=== PATIENT | male | born 1980 | race Caucasian/White ===

== ENCOUNTER 2017-12-13 19:11 | Emergency (ER) | payer BC ==
[2017-12-13] MEDS ORDERED: CETIRIZINE HCL 5 MG TABLET ONE (19:39)
[2017-12-13] MEDS ORDERED: DEXAMETHASONE 4 MG TAB ONE (19:39)
[2017-12-13] MEDS ORDERED: ALBUTEROL 2.5 MG/3 ML NEB SOL ONE (19:40)
[2017-12-13] MEDS ORDERED: PROMETHAZINE 25 MG TABLET ONE (19:40)
--- NOTE | 2017-12-13 19:59 | RAD REPORT ---
EXAM DESCRIPTION: RAD - Chest Pa And Lat (2 Views) - 12/13/2017 7:49 pm CLINICAL HISTORY: Chest pain, productive cough COMPARISON: 12/17/2013 FINDINGS: The lungs are clear. The heart is normal in size. No displaced fractures. IMPRESSION: No acute or concerning finding suspected.
--- NOTE | 2017-12-13 20:56 | EDPHYS ---
Physician Documentation [facility] Name: Rick Covarrubias Age: 37 yrs Sex: Male : 1980 Arrival Date: 12/13/2017 Time: 19:13 Bed 13 Private MD: Beny Jiménez ED Physician Vicente Alejandra HPI: 12/13 19:30 This 37 yrs old Male presents to ER via Ambulatory with complaints of snw Breathing Difficulty, Cough. 19:30 The patient has shortness of breath at rest. Onset: The symptoms/episode began/occurred snw 6 day(s) ago, and became persistent. Duration: The symptoms are continuous, and are unchanged since they started. The patient's shortness of breath has no apparent modifying factors. Associated signs and symptoms: Pertinent positives: non-productive cough. Severity of symptoms: At their worst the symptoms were moderate. The patient has not experienced similar symptoms in the past. It is unknown whether or not the patient has recently seen a physician, Sees Dr. Jiménez. Historical: - Allergies: 19:23 Codeine; la1 - PMHx: 19:23 None; la1 - Immunization history:: Adult Immunizations up to date. - Social history:: Smoking status: Patient/guardian denies using tobacco. ROS: 19:30 Constitutional: Negative for fever, chills, and weight loss, Eyes: Negative for injury, snw pain, redness, and discharge, ENT: Negative for injury, pain, and discharge, Neck: Negative for injury, pain, and swelling, Cardiovascular: Negative for chest pain, palpitations, and edema, Abdomen/GI: Negative for abdominal pain, nausea, vomiting, diarrhea, and constipation, Back: Negative for injury and pain, : Negative for injury, bleeding, discharge, and swelling, MS/Extremity: Negative for injury and deformity, Skin: Negative for injury, rash, and discoloration, Neuro: Negative for headache, weakness, numbness, tingling, and seizure. 19:30 Respiratory: Positive for cough, wheezing. Exam: 19:30 Constitutional: This is a well developed, well nourished patient who is awake, alert, snw and in no acute distress. Head/Face: Normocephalic, atraumatic. Eyes: Pupils equal round and reactive to light, extra-ocular motions intact. Lids and lashes normal. Conjunctiva and sclera are non-icteric and not injected. Cornea within normal limits. Periorbital areas with no swelling, redness, or edema. ENT: Nares patent. No nasal discharge, no septal abnormalities noted. Tympanic membranes are normal and external auditory canals are clear. Oropharynx with no redness, swelling, or masses, exudates, or evidence of obstruction, uvula midline. Mucous membranes moist. Neck: Trachea midline, no thyromegaly or masses palpated, and no cervical lymphadenopathy. Supple, full range of motion without nuchal rigidity, or vertebral point tenderness. No Meningismus. Chest/axilla: Normal chest wall appearance and motion. Nontender with no deformity. No lesions are appreciated. Cardiovascular: Regular rate and rhythm with a normal S1 and S2. No gallops, murmurs, or rubs. Normal PMI, no JVD. No pulse deficits. Abdomen/GI: Soft, non-tender, with normal bowel sounds. No distension or tympany. No guarding or rebound. No evidence of tenderness throughout. Back: No spinal tenderness. No costovertebral tenderness. Full range of motion. Skin: Warm, dry with normal turgor. Normal color with no rashes, no lesions, and no evidence of cellulitis. MS/ Extremity: Pulses equal, no cyanosis. Neurovascular intact. Full, normal range of motion. Neuro: Awake and alert, GCS 15, oriented to person, place, time, and situation. Cranial nerves II-XII grossly intact. Motor strength 5/5 in all extremities. Sensory grossly intact. Cerebellar exam normal. Normal gait. 19:30 Respiratory: the patient does not display signs of respiratory distress, Respirations: forced wheeze, cough. Vital Signs: 19:23 BP 127 / 96; Pulse 113; Resp 19; Temp 97.3(TE); Pulse Ox 98% on R/A; Weight 108.86 kg; la1 Height 5 ft. 7 in. (170.18 cm); 20:15 BP 128 / 63; Pulse 98; Resp 18; Temp 98.7; Pulse Ox 98% ; ea 21:00 BP 111 / 76; Pulse 85; Resp 18 S; Pulse Ox 97% ; ea 19:23 Body Mass Index 37.59 (108.86 kg, 170.18 cm) la1 MDM: 19:28 Patient medically screened. snw 20:59 Data reviewed: vital signs, nurses notes. Data interpreted: Pulse oximetry: on room air snw is 96 %. Interpretation: acceptable. 12/13 19:24 Order name: Chest Pa And Lat (2 Views) XRAY; Complete Time: 19:59 snw Administered Medications: 19:40 Drug: Decadron 8 mg Route: PO; ea 21:15 Follow up: Response: No adverse reaction ea 19:40 Drug: ZyrTEC - Cetirizine 10 mg Route: PO; ea 21:15 Follow up: Response: No adverse reaction; Marked relief of symptoms ea 19:40 Drug: Phenergan 25 mg Route: PO; ea 21:15 Follow up: Response: No adverse reaction; Marked relief of symptoms ea 19:50 Drug: Albuterol 2.5 mg Route: Inhalation; ea 20:19 Follow up: Response: No adverse reaction; Marked relief of symptoms ea Disposition: 12/14 04:17 Co-signature as Attending Physician, Vicente Alejandra MD. rn Disposition: 12/13/17 20:55 Discharged to Home. Impression: Acute bronchitis. - Condition is Stable. - Discharge Instructions: Acute Bronchitis. - Prescriptions for Zyrtec 10 mg Oral Tablet - take 1 tablet by ORAL route once daily As needed; 20 tablet. Tessalon Perles 100 mg Oral Capsule - take 1 capsule by ORAL route every 8 hours As needed; 15 capsule. Prednisone 20 mg Oral Tablet - take 1 tablet by ORAL route every 12 hours for 5 days; 10 tablet. Albuterol Sulfate 90 mcg/actuation - inhale 1-2 puff by INHALATION route every 4-6 hours; 1 Inhaler. - Medication Reconciliation Form, Thank You Letter, Antibiotic Education, Prescription Opioid Use form. - Follow up: Beny Jiménez MD; When: 2 - 3 days; Reason: Recheck today's complaints, Continuance of care, Re-evaluation by your physician. Follow up: Emergency Department; When: As needed; Reason: Worsening of condition. Signatures: Dispatcher [employer] EDFunmilayo Villarreal, TRIC MANAGER FITNESS-[employer] Vicente Alejandra MD MD rn Attema, Lee RN RN Sigrid Lujan RN RN ea
--- NOTE | 2017-12-13 20:56 | ER ---
Nurse's Notes [facility] Name: Rick Covarrubias Age: 37 yrs Sex: Male : 1980 Arrival Date: 12/13/2017 Time: 19:13 Bed 13 Private MD: Beny Jiménez Diagnosis: Acute bronchitis Presentation: 12/13 19:22 Presenting complaint: Patient states: productive, painful cough for 6 days. Transition la1 of care: patient was not received from another setting of care. Onset of symptoms was December 13, 2017. Initial Sepsis Screen: Does the patient meet any 2 criteria? No. Patient's initial sepsis screen is negative. Does the patient have a suspected source of infection? No. Patient's initial sepsis screen is negative. Care prior to arrival: None. 19:22 Method Of Arrival: Ambulatory la1 19:22 Acuity: HERO 3 la1 Historical: - Allergies: 19:23 Codeine; la1 - PMHx: 19:23 None; la1 - Immunization history:: Adult Immunizations up to date. - Social history:: Smoking status: Patient/guardian denies using tobacco. Screenin:18 Abuse screen: Denies threats or abuse. Nutritional screening: No deficits noted. ea Tuberculosis screening: No symptoms or risk factors identified. Fall Risk None identified. Assessment: 19:40 General: Appears uncomfortable, Behavior is calm, cooperative, appropriate for age. ea Pain: Quality of pain is described as reports pain to right and left sides when coughing. Neuro: Level of Consciousness is awake, alert, obeys commands, Oriented to person, place, time, situation. Cardiovascular: Patient's skin is warm and dry. Respiratory: Airway is patent Respiratory effort is even, unlabored, Respiratory pattern is regular, symmetrical, Breath sounds with crackles in left posterior lower lobe and right posterior lower lobe Breath sounds with wheezes in left posterior upper lobe and right posterior upper lobe. GI: No signs and/or symptoms were reported involving the gastrointestinal system. Abdomen is non-distended. : No signs and/or symptoms were reported regarding the genitourinary system. EENT: Reports nasal congestion. Derm: Skin is dry, Skin is normal, Skin temperature is warm. 21:18 Reassessment: Patient and/or family updated on plan of care and expected duration. Pain ea level reassessed. Patient is alert, oriented x 3, equal unlabored respirations, skin warm/dry/pink. Discharge instructions given to patient. verbalized the understanding of instructions. Vital Signs: 19:23 BP 127 / 96; Pulse 113; Resp 19; Temp 97.3(TE); Pulse Ox 98% on R/A; Weight 108.86 kg; la1 Height 5 ft. 7 in. (170.18 cm); 20:15 BP 128 / 63; Pulse 98; Resp 18; Temp 98.7; Pulse Ox 98% ; ea 21:00 BP 111 / 76; Pulse 85; Resp 18 S; Pulse Ox 97% ; ea 19:23 Body Mass Index 37.59 (108.86 kg, 170.18 cm) la1 ED Course: 19:13 Patient arrived in ED. am2 19:13 Beny Jiménez MD is Private Physician. am2 19:15 Funmilayo Duke FNP-C is [facility]. snw 19:15 Vicente Alejandra MD is Attending Physician. snw 19:22 Triage completed. la1 19:23 Arm band placed on left wrist. la1 19:34 Sigrid Quan, CHRISTIAN is Primary Nurse. ea 19:40 Patient has correct armband on for positive identification. Bed in low position. Call ea light in reach. Side rails up X 1. 19:49 X-ray completed. Patient tolerated procedure well. kp1 19:49 Chest Pa And Lat (2 Views) XRAY In Process Unspecified. EDMS 20:55 Beny Jiménez MD is Referral Physician. snw 21:19 No provider procedures requiring assistance completed. Patient did not have IV access ea during this emergency room visit. Administered Medications: 19:40 Drug: Decadron 8 mg Route: PO; ea 21:15 Follow up: Response: No adverse reaction ea 19:40 Drug: ZyrTEC - Cetirizine 10 mg Route: PO; ea 21:15 Follow up: Response: No adverse reaction; Marked relief of symptoms ea 19:40 Drug: Phenergan 25 mg Route: PO; ea 21:15 Follow up: Response: No adverse reaction; Marked relief of symptoms ea 19:50 Drug: Albuterol 2.5 mg Route: Inhalation; ea 20:19 Follow up: Response: No adverse reaction; Marked relief of symptoms ea Outcome: 20:55 Discharge ordered by MD. martinez 21:19 Discharged to home ambulatory. wilda 21:19 Condition: improved 21:19 Discharge instructions given to patient, Instructed on discharge instructions, follow up and referral plans. medication usage, Demonstrated understanding of instructions, follow-up care, medications, Prescriptions given X 4. 21:24 Patient left the ED. ea Signatures: Dispatcher [employer] EDMS Funmilayo Duke, [employer] MANAGER-C [employer] MANAGER-[employer] Jaron Rucker, RN RN Alcira Messer Kathy kp1 Sigrid Quan RN RN ea
== END 2017-12-13 21:24 | disposition home or self-care (01) ==
LOC: ER 19:11
DX: J20.9 Acute bronchitis, unspecified (principal); Z88.5 Allergy status to narcotic agent
CPT/HCPCS: 71046; 99284

== ENCOUNTER 2017-12-18 18:55 | Emergency (ER) | payer BC ==
[2017-12-18] MEDS ORDERED: IBUPROFEN 400 MG TAB ONE (19:13)
--- NOTE | 2017-12-18 21:15 | RAD REPORT ---
EXAM DESCRIPTION: CT - Soft Tissue Neck W/Contr - 12/18/2017 9:03 pm CLINICAL HISTORY: Left-sided face and ear pain TECHNIQUE: During dynamic enhancement using 100 milliliters nonionic IV contrast, axial 5 millimeter thick images of the neck were obtained. All CT scans are performed using dose optimization technique as appropriate and may include automated exposure control or mA/KV adjustment according to patient size. FINDINGS: Intracranial portion of the examination is unremarkable. Mastoid air cells are clear. Patc hy opacification in the middle ear is present. Prominent mucosal thickening with air-fluid level in the left maxillary sinus. No pharyngeal mucosal mass or asymmetry. Soft palate, tonsil and tongue base region show no suspiciou s findings. Epiglottis is normal. Internal carotid artery's course medially causing some mild mass ef fect on the posterolateral oropharynx. Parotid and submandibular glands on the left are normal. A few small sub centimeter lymph nodes are p resent. No measurable edema in the periauricular soft tissues. No air or foreign body. External auditory scar l is clear. IMPRESSION: Acute and chronic left maxillary sinusitis. Ethmoid air cell mucosal thickening also pre sent. Mastoid air cells are clear. There is opacification in the middle here. Cholesteatoma cannot be exclu ded on this examination. No periauricular edema or inflammatory stranding seen. No air or foreign body. Parotid gland is unrem arkable.
--- NOTE | 2017-12-18 21:25 | EDPHYS ---
Physician Documentation [facility] Name: Rick Covarrubias Age: 37 yrs Sex: Male : 1980 Arrival Date: 12/18/2017 Time: 19:00 Bed 11 Private MD: Beny Jiménez ED Physician Chao Preciado HPI: 12/18 21:20 This 37 yrs old Male presents to ER via Ambulatory with complaints of Ear gs Pain. 21:20 The patient presents with a fullness, pain, incapacitating. The complaints affect the gs left ear. Onset: The symptoms/episode began/occurred gradually, just prior to arrival. Modifying factors: The symptoms are alleviated by nothing, the symptoms are aggravated by loud noise. Associated signs and symptoms: Pertinent positives: sore throat, Pertinent negatives: fever. Severity of symptoms: At their worst the symptoms were incapacitating in the emergency department the symptoms are unchanged. The patient has not experienced similar symptoms in the past. The patient has not recently seen a physician. Historical: - Allergies: 19:04 Codeine; fc - Home Meds: 19:04 None [Active]; fc - PMHx: 19:04 None; fc - PSHx: 19:04 None; fc - Immunization history:: Last tetanus immunization: up to date. - Social history:: Smoking status: Patient/guardian denies using tobacco. ROS: 21:20 All other systems are negative. gs Exam: 21:20 Head/Face: Normocephalic, atraumatic. Eyes: Pupils equal round and reactive to light, gs extra-ocular motions intact. Lids and lashes normal. Conjunctiva and sclera are non-icteric and not injected. Cornea within normal limits. Periorbital areas with no swelling, redness, or edema. Neck: Trachea midline, no thyromegaly or masses palpated, and no cervical lymphadenopathy. Supple, full range of motion without nuchal rigidity, or vertebral point tenderness. No Meningismus. Chest/axilla: Normal chest wall appearance and motion. Nontender with no deformity. No lesions are appreciated. Cardiovascular: Regular rate and rhythm with a normal S1 and S2. No gallops, murmurs, or rubs. Normal PMI, no JVD. No pulse deficits. Respiratory: Lungs have equal breath sounds bilaterally, clear to auscultation and percussion. No rales, rhonchi or wheezes noted. No increased work of breathing, no retractions or nasal flaring. Abdomen/GI: Soft, non-tender, with normal bowel sounds. No distension or tympany. No guarding or rebound. No evidence of tenderness throughout. Back: No spinal tenderness. No costovertebral tenderness. Full range of motion. Skin: Warm, dry with normal turgor. Normal color with no rashes, no lesions, and no evidence of cellulitis. MS/ Extremity: Pulses equal, no cyanosis. Neurovascular intact. Full, normal range of motion. Neuro: Awake and alert, GCS 15, oriented to person, place, time, and situation. Cranial nerves II-XII grossly intact. Motor strength 5/5 in all extremities. Sensory grossly intact. Cerebellar exam normal. Normal gait. 21:20 Constitutional: The patient appears alert, awake, in obvious distress, severely distressed. 21:20 ENT: External ear(s): pain with movement, is not appreciated, Ear canal(s): are normal, TM's: dullness, on the left, erythema, that is moderate, fluid levels, on the left, loss of bony landmarks, that is pronounced, on the left, rupture, is not appreciated, Examination of the other ear shows no obvious abnormality, Posterior pharynx: Tonsils: no enlargement, no exudate, Uvula: normal. 21:20 Neck: Lymph nodes: lymphadenopathy is appreciated, anterior cervical nodes. 21:20 ECG was reviewed by the Attending Physician. Vital Signs: 19:04 BP 162 / 88; Pulse 92; Resp 20; Temp 98.0(TE); Pulse Ox 100% on R/A; Weight 108.86 kg fc (R); Height 5 ft. 7 in. (170.18 cm) (R); Pain 9/10; 21:41 BP 138 / 72; Pulse 89; Resp 18; Pulse Ox 99% on R/A; aa1 19:04 Body Mass Index 37.59 (108.86 kg, 170.18 cm) MDM: 19:20 Patient medically screened. snw 21:20 Differential diagnosis: otitis media, acute otalgia, neck mass abscess. Data reviewed: vital signs, nurses notes. Response to treatment: the patient's symptoms have mildly improved after treatment. ED course: ct pt pain out of proportion to physical findings. 21:20 Counseling: I had a detailed discussion with the patient and/or guardian regarding: the gs presence of at least one elevated blood pressure reading (>120/80) during this emergency department visit. Special discussion: I have referred the patient to see his PCP for further evaluation of high blood pressure. 12/18 19:58 Order name: Creatinine for Radiology; Complete Time: 20:48 gs 12/18 19:38 Order name: CT Soft Tissue Neck W/contr; Complete Time: 21:19 12/18 19:48 Order name: EKG; Complete Time: 19:49 gs 12/18 19:48 Order name: EKG - Nurse/Tech; Complete Time: 20:22 gs EC:20 Rate is 83 beats/min. Rhythm is regular. ND interval is normal. QRS interval is normal. gs T waves are Normal. No ST changes noted. Clinical impression: Abnormal EKG without significant change. Interpreted by me. Administered Medications: 19:15 Drug: Ibuprofen 800 mg Route: PO; Disposition: 12/18/17 21:24 Discharged to Home. Impression: Otalgia, left ear, Otalgia and effusion of ear, Acute suppurative otitis media. - Condition is Stable. - Discharge Instructions: Ear Drops, Adult, Earache, Managing Your High Blood Pressure. - Prescriptions for Ceftin 500 mg Oral Tablet - take 1 tablet by ORAL route every 12 hours for 10 days; 20 tablet. Ciprodex 0.3- 0.1 % Otic Drops, Suspension - instill 4 drop by OTIC route every 12 hours for 7 days , for ears ONLY; 1 Container. - Medication Reconciliation Form, Thank You Letter, Antibiotic Education, Prescription Opioid Use form. - Follow up: Sarah Wyatt MD; When: 2 - 3 days; Reason: Re-evaluation by your physician. Signatures: Dispatcher [employer] EDMS Lidia Venegas RN RN aa1 Funmilayo Duke FNP-C FNP-Mallorie Grijalva RN RN Chao Preciado MD MD Corrections: (The following items were deleted from the chart) 21:42 21:24 12/18/2017 21:24 Discharged to Home. Impression: Otalgia, left ear; Otalgia and aa1 effusion of ear; Acute suppurative otitis media. Condition is Stable. Forms are Medication Reconciliation Form, Thank You Letter, Antibiotic Education, Prescription Opioid Use. Follow up: Sarah Wyatt; When: 2 - 3 days; Reason: Re-evaluation by your physician. gs
--- NOTE | 2017-12-18 21:25 | ER ---
Nurse's Notes [facility] Name: Rick Covarrubias Age: 37 yrs Sex: Male : 1980 Arrival Date: 12/18/2017 Time: 19:00 Bed 11 Private MD: Beny Jiménez Diagnosis: Otalgia, left ear;Otalgia and effusion of ear;Acute suppurative otitis media Presentation: 12/18 19:01 Presenting complaint: Patient states: that he is having a lot of pressure in is left fc ear that started at about 1730 today. States that the pain is going down to his jaw. Denies any drainage or injury to ear. Transition of care: patient was not received from another setting of care. Onset of symptoms was December 18, 2017 at 17:30. Initial Sepsis Screen: Does the patient meet any 2 criteria? HR > 90 bpm. Yes Does the patient have a suspected source of infection? No. Patient's initial sepsis screen is negative. Care prior to arrival: None. 19:01 Method Of Arrival: Ambulatory 19:01 Acuity: HERO 3 Triage Assessment: 19:10 General: Appears uncomfortable, Behavior is cooperative, appropriate for age, anxious. fc Pain: Complains of pain in left ear Pain currently is 9 out of 10 on a pain scale. Quality of pain is described as aching, throbbing, Pain began 2 hours ago. Is continuous. EENT: Tympanic membrane reddened on left ear Ear canal clear on left ear Reports pain in left ear. Neuro: Level of Consciousness is awake, alert, obeys commands, Oriented to person, place, time, situation. Cardiovascular: No deficits noted. Respiratory: No deficits noted. GI: No deficits noted. : No deficits noted. Derm: Skin is pink, warm \T\ dry. Musculoskeletal: Circulation, motion, and sensation intact. Capillary refill < 3 seconds, Range of motion: intact in all extremities. Historical: - Allergies: 19:04 Codeine; fc - Home Meds: 19:04 None [Active]; fc - PMHx: 19:04 None; fc - PSHx: 19:04 None; fc - Immunization history:: Last tetanus immunization: up to date. - Social history:: Smoking status: Patient/guardian denies using tobacco. Screenin:10 Abuse screen: Denies threats or abuse. Nutritional screening: No deficits noted. fc Tuberculosis screening: No symptoms or risk factors identified. Fall Risk None identified. Assessment: 19:09 Reassessment: Dr Preciado in triage to see pt. 19:11 Reassessment: No changes from previously documented assessment. Patient and/or family fc updated on plan of care and expected duration. Pain level reassessed. Patient is alert, oriented x 3, equal unlabored respirations, skin warm/dry/pink. see triage assessment. 21:41 Reassessment: Patient appears in no apparent distress at this time. Patient is alert, aa1 oriented x 3, equal unlabored respirations, skin warm/dry/pink. Discussed d/c \T\ f/u instructions with pt; denies questions or concerns at this time Patient states feeling better. Vital Signs: 19:04 BP 162 / 88; Pulse 92; Resp 20; Temp 98.0(TE); Pulse Ox 100% on R/A; Weight 108.86 kg fc (R); Height 5 ft. 7 in. (170.18 cm) (R); Pain 9/10; 21:41 BP 138 / 72; Pulse 89; Resp 18; Pulse Ox 99% on R/A; aa1 19:04 Body Mass Index 37.59 (108.86 kg, 170.18 cm) fc ED Course: 19:00 Patient arrived in ED. mr 19:01 Beny Jiménez MD is Private Physician. mr 19:03 Triage completed. fc 19:04 Arm band placed on Patient placed in an exam room, on a stretcher. fc 19:10 Patient has correct armband on for positive identification. Call light in reach. fc 19:18 Funmilayo Duke FNP-C is PHCP. snw 19:18 Chao Preciado MD is Attending Physician. snw 20:00 Radiology exam delayed due to lab results not completed at this time. IV insertion nj attempt and/or patient not having appropriate IV at this time. 20:21 EKG done, by ED staff, reviewed by Chao Preciado MD. Initial lab(s) drawn, by nj, sent dh3 to lab. Inserted saline lock: 20 gauge in left forearm, using aseptic technique. Blood collected. 20:[address] via wheelchair. nj 21:03 CT completed. Patient tolerated procedure well. Patient moved back from [place]. corby 21:04 CT Soft Tissue Neck W/contr In Process Unspecified. EDMS 21:23 Sarah Wyatt MD is Referral Physician. 21:41 No provider procedures requiring assistance completed. IV discontinued, intact, aa1 bleeding controlled, No redness/swelling at site. Pressure dressing applied. Administered Medications: 19:15 Drug: Ibuprofen 800 mg Route: PO; fc Outcome: 21:24 Discharge ordered by MD. gs 21:41 Discharged to home ambulatory. aa1 21:41 Condition: good 21:41 Discharge instructions given to patient, Instructed on discharge instructions, follow up and referral plans. medication usage, Demonstrated understanding of instructions, follow-up care, medications, Prescriptions given X 2. 21:42 Patient left the ED. aa1 Signatures: Dispatcher [employer] EDMS Lidia Venegas RN RN aa1 Funmilayo Duke, ELECTRONIC GAME DEVELOPER-C ELECTRONIC GAME DEVELOPER-Cs[employer] Lary Wallace mr Mallorie Lazo RN RN Pablo Munson Deanna [facility] Chao Preciado MD MD Corrections: (The following items were deleted from the chart) 19:09 19:01 Presenting complaint: Patient states: that he is having a lot of pressure in is fc right ear that started at about 1730 today. States that the pain is going down to his jaw. Denies any drainage or injury to ear. fc
--- NOTE | 2017-12-19 06:43 | EKG ---
Test Date: 2017-12-18 Test Time: 20:09:10 Caul Dresser: ANASTACIA MEASUREMENT RESULTS: Intervals: Rate: 83 [place]: 122 QRSD: 76 QT: 344 QTc: 404 Woodruff: P: 36 AZ: 122 QRS: 3 T: 58 INTERPRETIVE STATEMENTS: Normal sinus rhythm Minimal voltage criteria for LVH, may be normal variant Borderline ECG No previous ECG available for comparison Electronically Signed On 12-19-17 06:43:02 CDT by Sha Kirk
== END 2017-12-18 21:42 | disposition home or self-care (01) ==
LOC: ER 18:55
DX: H66.002 Acute suppurative otitis media without spontaneous rupture of ear drum, left ear (principal)
CPT/HCPCS: 36415; 70491; 93005; 99284; Q9967

== ENCOUNTER 2019-01-01 10:17 | Emergency (ER) | payer BC, OTHER ==
--- NOTE | 2019-01-01 12:38 | RAD REPORT ---
EXAM DESCRIPTION: RAD - Ankle Right 3 View - 01/01/2019 12:33 pm CLINICAL HISTORY: right ankle pain Pain and swelling COMPARISON: No comparisons FINDINGS: No fracture or dislocation seen. Large calcaneal spurs are evident. IMPRESSION: Large calcaneal spurs.
--- NOTE | 2019-01-01 12:50 | EDPHYS ---
Physician Documentation [facility] Name: Rick Covarrubias Age: 38 yrs Sex: Male : 1980 Arrival Date: 01/01/2019 Time: 10:21 Bed 11 Private MD: Beny Jiménez ED Physician Chao Preciado HPI: 01/01 11:56 This 38 yrs old Male presents to ER via Ambulatory with complaints of Foot jmm Pain. 11:56 The patient presents with pain, that is acute. Onset: The symptoms/episode jmm began/occurred gradually, 4 day(s) ago. Modifying factors: The symptoms are alleviated by elevating leg, the symptoms are aggravated by weight bearing. Associated signs and symptoms: Pertinent negatives calf tenderness, fever, swelling. This is a 38 year old male with no chronic medical conditions that presents to the ED with complaints of right ankle pain beginning 4 days ago. Patient states he began working out 1 week ago. Pain is worsened with weight bearing. Denies fever. Denies known injury. . Historical: - Allergies: 10:35 Codeine; ss - Home Meds: 10:39 None [Active]; ss - PMHx: 10:39 None; ss - PSHx: 10:35 None; ss - Immunization history:: Adult Immunizations up to date. - Social history:: Smoking status: Patient/guardian denies using tobacco. - Ebola Screening: : Patient denies exposure to infectious person Patient denies travel to an Ebola-affected area in the 21 days before illness onset. ROS: 11:56 Constitutional: Negative for fever, chills, and weight loss, Cardiovascular: Negative jmm for chest pain, palpitations, and edema, Respiratory: Negative for shortness of breath, cough, wheezing, and pleuritic chest pain. 11:56 MS/extremity: Positive for injury or acute deformity, pain. 11:56 All other systems are negative. Exam: 11:56 Constitutional: This is a well developed, well nourished patient who is awake, alert, jmm and in no acute distress. Head/Face: atraumatic. Eyes: EOMI, no conjunctival erythema appreciated ENT: Moist Mucus Membranes Neck: Trachea midline, Supple Chest/axilla: Normal chest wall appearance and motion. Cardiovascular: Regular rate and rhythm. No edema appreciated Respiratory: Normal respirations, no respiratory distress appreciated Abdomen/GI: Non distended, soft Back: Normal ROM Skin: General appearance color normal 11:56 Musculoskeletal/extremity: right lateral ankle pain on palpation, no swelling appreciated, no deformity appreciated, full dorsalis pedis pulse appreciated, compartments are soft, NVI.. 11:56 Skin: Appearance: Color: normal in color. 11:56 Neuro: Orientation: is normal, Mentation: is normal, Memory: is normal. 11:56 Psych: Behavior/mood is pleasant, cooperative. Vital Signs: 10:39 BP 133 / 87; Pulse 68; Resp 16; Temp 97.3(TE); Pulse Ox 98% on R/A; Weight 108.86 kg; ss Height 5 ft. 7 in. (170.18 cm); Pain 6/10; 10:39 Body Mass Index 37.59 (108.86 kg, 170.18 cm) ss MDM: 11:53 Patient medically screened. [facility] 12:47 Data reviewed: vital signs, nurses notes. Counseling: I had a detailed discussion with jayne the patient and/or guardian regarding: the historical points, exam findings, and any diagnostic results supporting the discharge/admit diagnosis, radiology results, the need for outpatient follow up, to return to the emergency department if symptoms worsen or persist or if there are any questions or concerns that arise at home. ED course: Symptoms appear most likely due to overuse. Patient is advised to follow up with ortho for further evaluation and otherwise advised to return to the ED if symptoms worsen. Patient understood and agrees with the plan of care. . 01/01 11:53 Order name: Ankle Right 3 View XRAY; Complete Time: 12:42 [facility] 01/01 12:48 Order name: Esteban wrap-joint; Complete Time: 13:38 [facility] Administered Medications: 13:25 Drug: Motrin 800 mg Route: PO; sg Disposition: 01/01/19 12:49 Discharged to Home. Impression: Pain in ankle and joints of foot. - Condition is Stable. - Discharge Instructions: Ankle Pain, Foot Pain. - Prescriptions for Ibuprofen 800 mg Oral Tablet - take 1 tablet by ORAL route every 8 hours As needed take with food; 30 tablet. - Work release form, Medication Reconciliation Form, Thank You Letter, Antibiotic Education, Prescription Opioid Use form. - Follow up: Jong Bustillos MD; When: 2 - 3 days; Reason: Recheck today's complaints, Continuance of care, Re-evaluation by your physician. Addendum: 01/02/2019 16:16 Co-signature as Attending Physician, Chao Preciado MD. g s Signatures: Dispatcher [employer] EDDon Rodriguez, RN RN sg Rommel Bolton PA PA jmm Smirch, Shelby, RN RN ss Starr, Gregory, MD MD Corrections: (The following items were deleted from the chart) 01/01 13:38 12:49 01/01/2019 12:49 Discharged to Home. Impression: Pain in ankle and joints of sg foot. Condition is Stable. Forms are Medication Reconciliation Form, Thank You Letter, Antibiotic Education, Prescription Opioid Use. Follow up: Dr. Jong Bustillos; When: 2 - 3 days; Reason: Recheck today's complaints, Continuance of care, Re-evaluation by your physician. jayne
--- NOTE | 2019-01-01 12:50 | ER ---
Nurse's Notes [facility] Name: Rick Covarrubias Age: 38 yrs Sex: Male : 1980 Arrival Date: 01/01/2019 Time: 10:21 Bed 11 Private MD: Beny Jiménez Diagnosis: Pain in ankle and joints of foot Presentation: 01/01 10:35 Presenting complaint: Patient states: Pain to R Achilles area that began 2 days ago. ss Denies injury. No discoloration and/or swelling noted. Transition of care: patient was not received from another setting of care. Onset of symptoms was December 30, 2018. Risk Assessment: Do you want to hurt yourself or someone else? Patient reports no desire to harm self or others. Initial Sepsis Screen: Does the patient meet any 2 criteria? No. Patient's initial sepsis screen is negative. Does the patient have a suspected source of infection? No. Patient's initial sepsis screen is negative. Care prior to arrival: None. 10:35 Method Of Arrival: Ambulatory ss 10:35 Acuity: HERO 4 ss Historical: - Allergies: 10:35 Codeine; ss - Home Meds: 10:39 None [Active]; ss - PMHx: 10:39 None; ss - PSHx: 10:35 None; ss - Immunization history:: Adult Immunizations up to date. - Social history:: Smoking status: Patient/guardian denies using tobacco. - Ebola Screening: : Patient denies exposure to infectious person Patient denies travel to an Ebola-affected area in the 21 days before illness onset. Screenin:35 Abuse screen: Denies threats or abuse. Denies injuries from another. Nutritional ss screening: No deficits noted. Tuberculosis screening: Never had TB. Fall Risk None identified. Assessment: 10:35 General: Appears in no apparent distress. comfortable, Behavior is calm, cooperative, ss Denies fever, feeling ill, fatigue, chills. Pain: Complains of pain in right Achilles Pain currently is 6 out of 10 on a pain scale. Quality of pain is described as aching, tender, Is continuous. Neuro: Level of Consciousness is awake, alert, obeys commands. Cardiovascular: Pulses are palpable in right posterior tibial artery and left posterior tibial artery. Respiratory: Airway is patent Respiratory effort is even, unlabored, Respiratory pattern is regular, symmetrical. EENT: Nares are clear Oral mucosa is moist. Derm: Skin is intact, is healthy with good turgor, Skin is moist, Skin is pink, warm \T\ dry. normal. Musculoskeletal: Circulation, motion, and sensation intact. Range of motion: intact in all extremities, Swelling absent. Vital Signs: 10:39 BP 133 / 87; Pulse 68; Resp 16; Temp 97.3(TE); Pulse Ox 98% on R/A; Weight 108.86 kg; ss Height 5 ft. 7 in. (170.18 cm); Pain 6/10; 10:39 Body Mass Index 37.59 (108.86 kg, 170.18 cm) ED Course: 10:21 Patient arrived in ED. rg4 10:22 Beny Jiménez MD is Private Physician. rg4 10:35 Patient has correct armband on for positive identification. Bed in low position. Call ss light in reach. 10:35 No provider procedures requiring assistance completed. Patient did not have IV access ss during this emergency room visit. 10:39 Triage completed. ss 10:39 Arm band placed on right wrist. ss 11:31 Rommel Bolton PA is PHCP. [facility] 11:31 Chao Preciado MD is Attending Physician. [facility] 12:34 Ankle Right 3 View XRAY In Process Unspecified. EDMS 12:48 Jong Bustillos MD is Referral Physician. [facility] 13:32 Don Lou, RN is Primary Nurse. sg Administered Medications: 13:25 Drug: Motrin 800 mg Route: PO; sg Outcome: 12:49 Discharge ordered by MD. [facility] 13:30 Discharged to home ambulatory, with family. sg 13:30 Condition: good 13:30 Discharge instructions given to patient, Instructed on discharge instructions, follow up and referral plans. safety practices, Demonstrated understanding of instructions, follow-up care. 13:38 Patient left the ED. sg Signatures: Dispatcher [employer] EDMS Don Lou, RN RN Rommel Sr PA PA jmm Smirch, Shelby, RN RN ss Garcia, Rubi rg4
[2019-01-01] MEDS ORDERED: IBUPROFEN 400 MG TAB ONE (13:37)
== END 2019-01-01 13:38 | disposition home or self-care (01) ==
LOC: ER 10:17
DX: M25.571 Pain in right ankle and joints of right foot (principal); Z88.5 Allergy status to narcotic agent
CPT/HCPCS: 99283

== ENCOUNTER 2020-04-17 17:48 | Emergency (ER) | payer OTHER ==
[2020-04-17] MEDS ORDERED: KETOROLAC 30 MG/ML INJ ONE (18:40)
[2020-04-17] MEDS ORDERED: CYCLOBENZAPRINE 10 MG TAB ONE (18:40)
--- NOTE | 2020-04-17 19:04 | EDPHYS ---
Physician Documentation [facility] Name: Rick Covarrubias Age: 39 yrs Sex: Male : 1980 Arrival Date: 04/17/2020 Time: 17:51 Bed 20 Private MD: Beny Jiménez ED Physician Vicente Alejandra HPI: 04/17 18:35 This 39 yrs old Male presents to ER via Wheelchair with complaints of Right pm1 foot pain. 18:35 The patient presents with pain, that is acute. The complaints affect the arch of right pm1 foot. Context: The problem was sustained at home, resulted from an unknown cause, the patient can fully bear weight, the patient is able to ambulate, with mild difficulty, Problem is a result from a previous injury: No. Onset: The symptoms/episode began/occurred yesterday. Modifying factors: the symptoms are aggravated by weight bearing. Associated signs and symptoms: Pertinent negatives calf tenderness, fever, swelling, tingling. Treatment prior to arrival includes: no previous treatment. Severity of symptoms: in the emergency department the symptoms are unchanged. The patient has experienced a previous episode, many years ago. Historical: - Allergies: 18:14 Codeine; ca1 - PMHx: 18:14 None; ca1 - PSHx: 18:14 None; ca1 - Immunization history:: Adult Immunizations up to date. - Social history:: Smoking status: Patient denies any tobacco usage or history of. ROS: 18:35 Constitutional: Negative for fever, chills, and weight loss, Cardiovascular: Negative pm1 for chest pain, palpitations, and edema, Respiratory: Negative for shortness of breath, cough, wheezing, and pleuritic chest pain, Abdomen/GI: Negative for abdominal pain, nausea, vomiting, diarrhea, and constipation. 18:35 Skin: Negative for injury, rash, and discoloration, Neuro: Negative for headache, weakness, numbness, tingling, and seizure. 18:35 MS/extremity: Positive for pain, swelling, tenderness, of the arch of right foot. Exam: 18:35 Constitutional: This is a well developed, well nourished patient who is awake, alert, pm1 and in no acute distress. Head/Face: Normocephalic, atraumatic. 18:35 Skin: Warm, dry with normal turgor. Normal color with no rashes, no lesions, and no evidence of cellulitis. 18:35 Cardiovascular: Exam negative for acute changes, Rate: normal, Rhythm: regular, Pulses: no pulse deficits are appreciated, Edema: is not appreciated. 18:35 Respiratory: Exam negative for acute changes, respiratory distress, shortness of breath. 18:35 Musculoskeletal/extremity: Exam is negative for acute changes, Extremities: grossly normal except: noted in the arch of right foot: tenderness, There is no evidence of erythema, swelling, ROM: no acute changes, Circulation is intact in all extremities. 18:35 Neuro: Exam negative for acute changes, Orientation: is normal, Mentation: is normal, Motor: is normal, moves all fours. Vital Signs: 18:12 BP 134 / 85; Pulse 84; Resp 18; Temp 98.7(O); Pulse Ox 98% on R/A; Weight 122.47 kg; ca1 Height 5 ft. 7 in. (170.18 cm); Pain 0/10; 18:12 Body Mass Index 42.29 (122.47 kg, 170.18 cm) ca1 MDM: 18:12 Patient medically screened. pm1 19:03 Data reviewed: vital signs. Data interpreted: Pulse oximetry: on room air is 98 %. pm1 Interpretation: normal. Counseling: I had a detailed discussion with the patient and/or guardian regarding: the historical points, exam findings, and any diagnostic results supporting the discharge/admit diagnosis, radiology results, the need for outpatient follow up, to return to the emergency department if symptoms worsen or persist or if there are any questions or concerns that arise at home. 19:10 ED course: Patient offered crutches. He prefers to buy his own due to potential pm1 difference in cost of crutches from the hospital. 04/17 18:23 Order name: Foot Right 3 View XRAY; Complete Time: 20:29 pm1 Administered Medications: 18:37 Drug: TORadol 60 mg Route: IM; Site: right deltoid; tw2 19:09 Follow up: Response: No adverse reaction tw2 18:37 Drug: Flexeril 10 mg Route: PO; tw2 19:09 Follow up: Response: No adverse reaction tw2 Disposition: 04/18 07:13 Co-signature as Attending Physician, Vicente Alejandra MD. rn Disposition: 04/17/20 19:03 Discharged to Home. Impression: Pain in right foot. - Condition is Stable. - Discharge Instructions: Plantar Fasciitis, Foot Pain. - Prescriptions for Cyclobenzaprine 10 mg Oral Tablet - take 1 tablet by ORAL route every 8 hours As needed; 30 tablet. Diclofenac Sodium 75 mg Oral Tablet, Delayed Release (E.C.) - take 1 tablet by ORAL route 2 times per day As needed; 30 tablet. - Medication Reconciliation Form, Thank You Letter, Antibiotic Education, Prescription Opioid Use, Work release form form. - Follow up: Emergency Department; When: As needed; Reason: Worsening of condition. Follow up: Private Physician; When: 2 - 3 days; Reason: Recheck today's complaints, Continuance of care, Re-evaluation by your physician. - Problem is new. - Symptoms have improved. Signatures: Dispatcher [employer] EDMS Vicente Alejandra MD MD rn Marinas, Patrick, SIGNAL PERSON SIGNAL PERSON pm1 Pallavi Hayes RN RN tw2 Germaine Jon RN RN ca1 Dorota Araiza RN RN mt2 Corrections: (The following items were deleted from the chart) 04/17 19:28 19:03 04/17/2020 19:03 Discharged to Home. Impression: Pain in right foot. Condition is mt2 Stable. Forms are Work release form, Medication Reconciliation Form, Thank You Letter, Antibiotic Education, Prescription Opioid Use. Follow up: Emergency Department; When: As needed; Reason: Worsening of condition. Follow up: Private Physician; When: 2 - 3 days; Reason: Recheck today's complaints, Continuance of care, Re-evaluation by your physician. Problem is new. Symptoms have improved. pm1
--- NOTE | 2020-04-17 19:04 | ER ---
Nurse's Notes [facility] Name: Rick Covarrubias Age: 39 yrs Sex: Male : 1980 Arrival Date: 04/17/2020 Time: 17:51 Bed 20 Private MD: Beyn Jiménez Diagnosis: Pain in right foot Presentation: 04/17 18:12 Chief complaint: Patient states: right foot swelling/pain that started yesterday, ca1 denies trauma, more painful when walking. Coronavirus screen: Client denies travel out of the [place] in the last 14 days. Ebola Screen: Patient negative for fever greater than or equal to 101.5 degrees Fahrenheit, and additional compatible Ebola Virus Disease symptoms Patient denies exposure to infectious person. Patient denies travel to an Ebola-affected area in the 21 days before illness onset. No symptoms or risks identified at this time. Initial Sepsis Screen: Does the patient meet any 2 criteria? No. Patient's initial sepsis screen is negative. Does the patient have a suspected source of infection? No. Patient's initial sepsis screen is negative. Risk Assessment: Do you want to hurt yourself or someone else? Patient reports no desire to harm self or others. Onset of symptoms was April 16, 2020. 18:12 Method Of Arrival: Wheelchair ca1 18:12 Acuity: HERO 4 ca1 Historical: - Allergies: 18:14 Codeine; ca1 - PMHx: 18:14 None; ca1 - PSHx: 18:14 None; ca1 - Immunization history:: Adult Immunizations up to date. - Social history:: Smoking status: Patient denies any tobacco usage or history of. Screenin:09 Abuse screen: Denies threats or abuse. Nutritional screening: No deficits noted. tw2 Tuberculosis screening: No symptoms or risk factors identified. Fall Risk None identified. Assessment: 18:20 Reassessment: provider at bedside at this time. tw2 18:37 General: Appears in no apparent distress. obese, well groomed, Behavior is calm, tw2 cooperative, appropriate for age. Pain: Complains of pain in arch of right foot. Neuro: Level of Consciousness is awake, alert, obeys commands, Oriented to person, place, time, situation. Cardiovascular: Capillary refill < 3 seconds Patient's skin is warm and dry. Respiratory: Airway is patent Respiratory effort is even, unlabored, Respiratory pattern is regular, symmetrical. GI: No signs and/or symptoms were reported involving the gastrointestinal system. : No signs and/or symptoms were reported regarding the genitourinary system. EENT: No signs and/or symptoms were reported regarding the EENT system. Derm: No signs and/or symptoms reported regarding the dermatologic system. Musculoskeletal: Circulation, motion, and sensation intact. Range of motion: intact in all extremities. Vital Signs: 18:12 BP 134 / 85; Pulse 84; Resp 18; Temp 98.7(O); Pulse Ox 98% on R/A; Weight 122.47 kg; ca1 Height 5 ft. 7 in. (170.18 cm); Pain 0/10; 18:12 Body Mass Index 42.29 (122.47 kg, 170.18 cm) ca1 ED Course: 17:51 Patient arrived in ED. ag5 17:51 Beny Jiménez MD is Private Physician. ag5 18:09 Pallavi Hayes RN is Primary Nurse. tw2 18:09 Bed in low position. Call light in reach. tw2 18:09 Arm band placed on. tw2 18:12 Uli Kapoor NP is PHCP. pm1 18:12 Vicente Alejandra MD is Attending Physician. pm1 18:14 Triage completed. ca1 18:51 Foot Right 3 View XRAY In Process Unspecified. EDMS 19:00 Report given to CHRISTIAN Raya. tw2 19:27 No provider procedures requiring assistance completed. Patient did not have IV access mt2 during this emergency room visit. Administered Medications: 18:37 Drug: TORadol 60 mg Route: IM; Site: right deltoid; tw2 19:09 Follow up: Response: No adverse reaction tw2 18:37 Drug: Flexeril 10 mg Route: PO; tw2 19:09 Follow up: Response: No adverse reaction tw2 Outcome: 19:03 Discharge ordered by . pm1 19:27 Discharged to home via wheelchair. mt2 19:27 Condition: good 19:27 Discharge instructions given to patient, Instructed on discharge instructions, follow up and referral plans. medication usage, Demonstrated understanding of instructions, follow-up care, medications, Prescriptions given X 2. 19:28 Patient left the ED. mt2 Signatures: Dispatcher [employer] EDMS Antwon Uli, WEB EDITOR WEB EDITOR pm1 Pallavi Hayes, RN RN tw2 Germaine Jon, RN RN ca1 Abena Borrero ag5 Dorota Araiza, RN RN mt2
--- NOTE | 2020-04-17 19:24 | RAD REPORT ---
EXAM DESCRIPTION: RAD - Foot Right 3 View - 04/17/2020 6:51 pm CLINICAL HISTORY: PAIN COMPARISON: No comparisonsNone. FINDINGS: No fracture, dislocation or periosteal reaction. No acute or destructive bone process. Lar ge plantar and Achilles spurs are present. No air or foreign body in the soft tissues. Soft tissue edema seen over the distal foot. IMPRESSION: Soft tissue swelling without air or foreign body. No acute bone or joint finding. Large plantar and Achilles spurs.
[2020-04-20 11:55] VITALS: BP 134/85; TEMP 98.7; O2SAT 98
== END 2020-04-17 19:28 | disposition home or self-care (01) ==
LOC: ER 17:48
DX: M79.671 Pain in right foot (principal); Z88.5 Allergy status to narcotic agent
CPT/HCPCS: 96372; 99283

== ENCOUNTER 2024-08-09 21:03 | Emergency (ER) | payer OTHER ==
--- NOTE | 2024-08-09 22:06 | RAD REPORT ---
EXAMINATION: UPPER EXTREMITY VENOUS UNILATE CLINICAL INDICATION: Right arm pain TECHNIQUE: Complete bilateral duplex sonography of the right upper extremity veins was performed. The examination included compression for vein patency, color Doppler imaging and flow augmentation in response to distal compression of the internal jugular,, subclavian, axillary, brachial, radial, ulna r, cephalic and basilic veins. .Grayscale, color and spectral analysis performed on all vessels COMPARISON: No prior exam. FINDINGS: The right internal jugular, subclavian, axillary, brachial, basilic, cephalic, radial and ulnar veins are generally compressible and demonstrate augmentation. Color Doppler demonstrates good flow. IMPRESSION: No evidence of venous thrombus right arm
--- NOTE | 2024-08-09 22:14 | EDPHYS ---
Physician Documentation [facility] Name: Rick Covarrubias Age: 43 yrs Sex: Male : 1980 Arrival Date: 08/09/2024 Time: 21:03 Bed 6 Private MD: ED Physician Vicente Alejandra HPI: 08/09 22:12 This 43 yrs old Male presents to ER via Ambulatory with complaints of RT ARM PAIN, kb FINGER NUMBNESS. 22:12 Pt is a 43 year old male who presents for pain to right upper arm that radiates down to kb fingers that started a week ago. States he has had some numbness to right thumb for the past 2 days so he wanted to get it checked out. Denies any injury or trauma. . Historical: - Allergies: 21:14 Codeine; hb - Home Meds: 21:14 Ritalin Oral [Active]; hb - PMHx: 21:14 ADHD; hb - PSHx: 21:14 None; hb - Immunization history:: Adult Immunizations up to date. - Infectious Disease History:: Denies. - Social history:: Smoking status: Patient denies any tobacco usage or history of. ROS: 22:08 Constitutional: As per HPI kb Exam: 22:08 Constitutional: This is a well developed, well nourished patient who is awake, alert, kb and in no acute distress. Head/Face: Normocephalic, atraumatic. ENT: Moist Mucous membranes Cardiovascular: Regular rate Respiratory: Respirations even and unlabored. No increased work of breathing. Talking in full sentences Skin: Warm, dry with normal turgor. Normal color. Neuro: Awake and alert, GCS 15, oriented to person, place, time, and situation. 22:08 Musculoskeletal/extremity: Extremities: grossly normal except: noted in the right tricep: pain, tenderness, ROM: intact in all extremities, Circulation is intact in all extremities. Sensation intact. Vital Signs: 21:12 BP 143 / 100; Pulse 74; Resp 16; Temp 98.3(O); Pulse Ox 98% on R/A; Weight 115.67 kg; hb Height 5 ft. 7 in. ; Pain 8/10; 22:29 BP 138 / 93; Pulse 76; Resp 18; Pulse Ox 100% on R/A; al5 21:12 Body Mass Index 39.94 (115.67 kg, 170.18 cm) hb 21:12 Pain Scale: Adult hb MDM: 21:06 Medical Screening Exam initiated kb 22:09 Differential diagnosis: radiculopathy, DVT, arterial obstruction. Data reviewed: vital kb signs, nurses notes. Counseling: I had a detailed discussion with the patient and/or guardian regarding the historical points, exam findings, and any diagnostic results supporting the discharge/admit diagnosis, radiology results, the need for outpatient follow up, to return to the emergency department if symptoms worsen or persist or if there are any questions or concerns that arise at home. 08/09 21:27 Order name: UPPER EXTREMITY VENOUS UNILATE; Complete Time: 22:08 EDMS Administered Medications: 22:20 Drug: predniSONE PO 40 mg PO once Route: PO; al5 22:20 Follow up: Response: No adverse reaction; Medication administered at discharge. al5 Disposition: 23:47 Co-signature as Attending Physician, Vicente Alejandra MD I reviewed the patient's care rn provided by the Advanced Practice Provider and agree with the diagnosis and treatment plan. Disposition Summary: 08/09/24 22:13 Discharge Ordered Notes: Location: Home kb Condition: Stable kb Diagnosis - Pain in right arm kb Followup: kb - With: Emergency Department - When: As needed - Reason: Worsening of condition Followup: kb - With: Private Physician - When: 2 - 3 days - Reason: Recheck today's complaints, Continuance of care, Re-evaluation by your physician Discharge Instructions: - Discharge Summary Sheet kb - Musculoskeletal Pain kb - Pinched Nerve kb Forms: - Medication Reconciliation Form kb - Antibiotic Education kb - Prescription Opioid Use kb - Patient Portal Instructions kb - Leadership Thank You Letter kb Prescriptions: - Prednisone 20 mg Oral Tablet - take 1 tablet ORAL route once daily for 5 days; 5 tablet; Refills: 0, Product kb Selection Permitted Signatures: Dispatcher [employer] EDMS Anna Marie Mueller FNP-Adilson JACINTOP-Vicente Spears MD MD rn Baxter, Heather, RN RN hb Langhorst, Amanda, RN RN al5 Corrections: (The following items were deleted from the chart) 21:27 21:16 Extremity Venous [email or web address] ordered. EDMS EDMS
--- NOTE | 2024-08-09 22:14 | ER ---
Nurse's Notes [facility] Name: Rick Covarrubias Age: 43 yrs Sex: Male : 1980 Arrival Date: 08/09/2024 Time: 21:03 Bed 6 Private MD: Diagnosis: Pain in right arm Presentation: 08/09 21:12 Chief complaint: Right arm pain x 1 week, right thumb numbness x 2 days. Coronavirus hb screen: At this time, the client does not indicate any symptoms associated with coronavirus-19. Ebola Screen: No symptoms or risks identified at this time. Initial Sepsis Screen: Does the patient meet any 2 criteria? No. Patient's initial sepsis screen is negative. Does the patient have a suspected source of infection? No. Patient's initial sepsis screen is negative. Risk Assessment: Do you want to hurt yourself or someone else? Patient reports no desire to harm self or others. Onset of symptoms was August 02, 2024. 21:12 Method Of Arrival: Ambulatory hb 21:12 Acuity: HERO 4 hb Historical: - Allergies: 21:14 Codeine; hb - Home Meds: 21:14 Ritalin Oral [Active]; hb - PMHx: 21:14 ADHD; hb - PSHx: 21:14 None; hb - Immunization history:: Adult Immunizations up to date. - Infectious Disease History:: Denies. - Social history:: Smoking status: Patient denies any tobacco usage or history of. Screenin:13 [facility] ED Fall Risk Assessment (Adult) History of falling in the last 3 months, jj7 including since admission No falls in past 3 months (0 pts) Confusion or Disorientation No (0 pts) Intoxicated or Sedated No (0 pts) Impaired Gait No (0 pts) Mobility Assist Device Used No (0 pt) Altered Elimination No (0 pt) Score/Fall Risk Level 0 - 2 = Low Risk Oriented to surroundings, Maintained a safe environment, Educated pt \T\ family on fall prevention, incl call for assistance when getting out of bed, Assessed \T\ reinforced patient's understanding of fall precautions. Abuse screen: Denies threats or abuse. Nutritional screening: No deficits noted. Tuberculosis screening: No symptoms or risk factors identified. Assessment: 21:13 General: Appears in no apparent distress. comfortable, Behavior is calm, cooperative, jj7 appropriate for age. Pain: Complains of pain in right arm Pain radiates to right thumbnail Pain currently is 4 out of 10 on a pain scale. Neuro: Site Supervising Technical Operator are equal bilaterally Numbness in right thumbnail Reports numbness in right thumbnail and right arm. Vital Signs: 21:12 BP 143 / 100; Pulse 74; Resp 16; Temp 98.3(O); Pulse Ox 98% on R/A; Weight 115.67 kg; hb Height 5 ft. 7 in. ; Pain 8/10; 22:29 BP 138 / 93; Pulse 76; Resp 18; Pulse Ox 100% on R/A; al5 21:12 Body Mass Index 39.94 (115.67 kg, 170.18 cm) hb 21:12 Pain Scale: Adult hb ED Course: 21:05 Patient arrived in ED. jj6 21:06 Anna Marie Mueller FNP-C [facility]. kb 21:06 Vicente Alejandra MD is Attending Physician. kb 21:09 Christopher Orlando RN is Primary Nurse. jj7 21:13 Patient has correct armband on for positive identification. Bed in low position. Call jj7 light in reach. Provided Education on: USE OF CALL GILMAN. 21:14 Triage completed. hb 21:15 Arm band placed on. hb 21:44 No provider procedures requiring assistance completed. al5 22:01 UPPER EXTREMITY VENOUS UNILATE In Process Unspecified. EDMS 22:20 Patient did not have IV access during this emergency room visit. al5 Administered Medications: 22:20 Drug: predniSONE PO 40 mg PO once Route: PO; al5 22:20 Follow up: Response: No adverse reaction; Medication administered at discharge. al5 Medication: 21:13 VIS not applicable for this client. jj7 Outcome: 22:13 Discharge ordered by . kb 22:30 Discharged to home ambulatory, al5 22:30 Condition: good 22:30 Discharge instructions given to patient, Instructed on discharge instructions, follow up and referral plans. medication usage, Demonstrated understanding of instructions, follow-up care, medications, Prescriptions given X 1, 22:30 Patient left the ED. al5 Signatures: Dispatcher [employer] EDGA Anna Marie Mueller FNP-C FNP-Ckb Baxter, Heather, RN RN Norma Mueller jj6 Christopher Orlando, RN RN jj7 Alcira Dumont, RN RN al5
[2024-08-09] MEDS ORDERED: predniSONE 20 MG TAB ONE (22:18)
[2024-08-09 22:35] VITALS: TEMP 98.3
[2024-08-09 22:36] VITALS: BP 138/93; O2SAT 100
== END 2024-08-09 22:30 | disposition home or self-care (01) ==
LOC: ER 21:03
DX: M79.601 Pain in right arm (principal); R20.0 Anesthesia of skin
CPT/HCPCS: 93971; 99283; J7512